=== PATIENT | male | born 1980 | race Caucasian/White ===

== ENCOUNTER 2021-12-01 08:35 | Emergency (ER) | payer BC ==
[2021-12-01 09:30] LABS: RED BLOOD COUNT 5.3 M/UL (4.20-5.50); WHITE BLOOD COUNT 7.3 K/UL (4.5-11.0)
[2021-12-01 09:43] LABS: BUN/CREATININE RATIO 16 (0-10)
[2021-12-01] MEDS ORDERED: PREDNISONE20 MG PO ×2 (09:48→09:56)
[2021-12-01] MEDS ORDERED: ARTIFICIAL TEA1 EACH OP ×2 (09:48→09:56)
== END 2021-12-01 11:06 | disposition home or self-care (01) ==
LOC: ER1 08:35
PROVIDERS: Emergency Medicine
DX: G51.0 Bell's palsy (principal); I10 Essential (primary) hypertension
CPT/HCPCS: 70450; 80048; 85025; 96374; 96375; 99284; J0360; J2930; Q0177